=== PATIENT | male | born 1980 | race Two or more races ===

== ENCOUNTER 2019-04-30 22:45 | Emergency (ER) | payer OTHER | END 2019-05-01 01:44 | disposition left against medical advice (07) | LOC: ER 22:47 | DX: F41.9 Anxiety disorder, unspecified (principal); Z53.21 Procedure and treatment not carried out due to patient leaving prior to being seen by health care provider ==

== ENCOUNTER → 2020-01-13 | Emergency (ER) | payer OTHER ==
[~2020-01-13] VITALS: Ht 185.4 cm; Wt 104.3 kg
[2020-01-13 22:34] VITALS: BP 141/99
== END | disposition home or self-care (01) ==
LOC: ER 17:52
DX: S13.4XXA Sprain of ligaments of cervical spine, initial encounter (principal); R51 Headache; I10 Essential (primary) hypertension; Z88.8 Allergy status to other drugs, medicaments and biological substances; V87.8XXA Person injured in other specified noncollision transport accidents involving motor vehicle (traffic), initial encounter; Y93.89 Activity, other specified; Y92.89 Other specified places as the place of occurrence of the external cause; Y99.8 Other external cause status
CPT/HCPCS: 70450; 72125

== ENCOUNTER 2020-11-24 17:44 | Emergency (ER) | payer OTHER ==
[~2020-11-24] VITALS: Ht 190.5 cm; Wt 90.7 kg
[2020-11-24 17:48] VITALS: BP 153/91
[2020-11-24 19:07] LABS: Basophils # (auto) 0 10 ^3/uL (0-0.2); Basophils % (auto) 0.5 % (0.0-2.0); Eosinophils # (auto) 0.1 10 ^3/uL (0-0.8); Eosinophils % (auto) 1.8 % (0.0-7.0); Hematocrit 42.6 % (41.0-53.0); Hemoglobin 15.1 g/dL (13.5-17.5); Lymphocytes # (auto) 1.1 10 ^3/uL (0.4-5.4); Lymphocytes % (auto) 23.8 % (10.0-50.0); Mean Corpuscular Hemoglobin 31.9 pg (28.0-32.0); Mean Corpuscular Hgb Conc. 35.4 g/dL (32.0-36.0); Mean Corpuscular Volume 90.2 fL (80.0-100.0); Monocytes # (auto) 0.4 10 ^3/uL (0-1.3); Monocytes % (auto) 8.1 % (0.0-12.0); Neutrophils # (auto) 3.1 10 ^3/uL (1.6-8.6); Neutrophils % (auto) 65.8 % (37.0-80.0); Nucleated Red Blood Cells % 0.1 %; Platelet Count (auto) 183 10^3/uL (140-450); Red Blood Cells 4.72 10^6/uL (4.5-5.90); Red Cell Distribution Width 12.7 % (11.8-14.3); White Blood Cell 4.7 10^3/uL (4.4-10.8)
[2020-11-24 19:20] LABS: Albumin 3.5 g/dL (3.4-5.0); Calcium 8.3 mg/dL (8.5-10.1); Potassium 3.9 mmol/L (3.5-5.1)
[2020-11-24 19:24] LABS: BUN/Creatinine Ratio 20.9; Bilirubin, Total 0.3 mg/dL (0.2-1.0); Total Protein 7.3 g/dL (6.4-8.2)
== END 2020-11-24 20:03 | disposition home or self-care (01) ==
LOC: ER 17:44 → EDBD 17:44 → ER 20:03
DX: R56.9 Unspecified convulsions (principal)
CPT/HCPCS: 36415; 80053; 85025; 99283; J7030

== ENCOUNTER 2021-12-09 22:19 | Emergency (ER) | payer OTHER ==
[~2021-12-09] VITALS: Ht 185.4 cm; Wt 104.3 kg
[2021-12-09 23:30] VITALS: BP 140/100
== END 2021-12-10 00:34 | disposition home or self-care (01) ==
LOC: ER 22:19
DX: R51.9 Headache, unspecified (principal); I10 Essential (primary) hypertension; F41.9 Anxiety disorder, unspecified; W18.09XA Striking against other object with subsequent fall, initial encounter; Y93.89 Activity, other specified; Y92.89 Other specified places as the place of occurrence of the external cause; Y99.8 Other external cause status
CPT/HCPCS: 70450; 70486

== ENCOUNTER 2023-10-09 20:17 | Emergency (ER) | payer OTHER ==
[~2023-10-09] VITALS: Ht 185.4 cm; Wt 104.2 kg
[2023-10-10] MEDS ORDERED: GUAI200T6 PO (00:42)
[2023-10-10] MEDS ORDERED: AZITTAB PO (00:42)
[2023-10-10 01:45] VITALS: BP 137/74; PULSE 78; RESP 17; TEMP 97.9; O2SAT 97
== END 2023-10-10 01:30 | disposition home or self-care (01) ==
LOC: ER 20:17
DX: J06.9 Acute upper respiratory infection, unspecified (principal); I10 Essential (primary) hypertension

== ENCOUNTER 2024-12-06 13:45 | Emergency (ER) | payer OTHER ==
[~2024-12-06] VITALS: Ht 188 cm; Wt 107.0 kg
[~2024-12-06 13:45] MED LIST: AZITTAB PO; GUAI200T6 PO
--- NOTE | 2024-12-06 14:26 | ED.PDOC ---
History of Present Illness HPI Comments This is a 44-year-old male who comes in with chief complaint of dizziness with a feeling of about to have a seizure. The patient states that he was at [facility] and then felt somewhat dizzy so 911 was called. The patient was last seizure was approximately three days ago. He states that he does not take medications for seizures because he does not like how they make him feel. The paramedics arrived, the patient was able to speak with them but he seemed acting somewhat bizarre. He does have a history of schizophrenia as well as anxiety and PTSD. Chief Complaint: General Weakness Time Seen by MD: 13:50 Primary Care Provider: UNKNOWN Reviewed Notes: Nurses Notes, Material Movers Notes, Medications, Allergies (No allergies to medications) Allergies: Coded Allergies: Haloperidol (Verified Allergy, Unknown, 05/01/19) Home Meds Active Scripts Guaifenesin (Guaifenesin) 200 Mg Tab, 400 MG PO Q6HPRN PRN, #30 TAB 0 Refills Prov:MARISA JEAN [facility] [employer] 10/10/23 Azithromycin (Zithromax Z-Sherman) 250 Mg Tab, 250 MG PO DAILY for 5 Days, #6 TAB 0 Refills Prov:MARISA JEAN [facility] 10/10/23 Information Source: Patient, Emergency Med Personnel Mode of Arrival: EMS Severity: Moderate Timing: Hours Duration: Since onset Prehospital treatment: Accucheck (One hundred thirty-six), IVF Associated signs and symptoms Dizziness with an aura Past Medical History PAST MEDICAL HISTORY: Anxiety, Depression, HTN, Schizophrenia Past Medical History (Other): PTSD Surgical History (Other): Back surgery Family History Family History: Unknown Social History Smoker: Non-Smoker Alcohol: Denies ETOH Use Drugs: Denies Drug Use Lives In: Home Constitutional: denies: chills, diaphoresis, fatigue, fever, malaise, sweats, weakness, others EENTM: denies: blurred vision, double vision, ear bleeding, ear discharge, ear drainage, ear pain, ear ringing, eye pain, eye redness, hearing loss, mouth pain, mouth swelling, nasal discharge, nose bleeding, nose congestion, nose pain, photophobia, tearing, throat pain, throat swelling, voice changes, others Respiratory: denies: cough, hemoptysis, orthopnea, SOB at rest, shortness of breath, SOB with excertion, stridor, wheezing, others Cardiovascular: denies: chest pain, dizzy spells, diaphoresis, Dyspnea on exertion, edema, irregular heart beat, left arm pain, lightheadedness, palpitations, PND, syncope, others Gastrointestinal: denies: abdomen distended, abdominal pain, blood streaked bowels, constipated, diarrhea, dysphagia, difficulty swallowing, hematemesis, melena, nausea, poor appetite, poor fluid intake, rectal bleeding, rectal pain, vomiting, others Genitourinary: denies: burning, dysuria, flank pain, frequency, hematuria, incontinence, penile discharge, penile sore, pain, testicle pain, testicle swelling, urgency, others Neurological: reports: dizziness, others (Aura); denies: fainting, headache, left sided numbness, left sided weakness, numbness, paresthesia, pre-existing deficit, right sided numbness, right sided weakness, seizure, speech problems, tingling, tremors, weakness Musculoskeletal: denies: back pain, gout, joint pain, joint swelling, muscle pain, muscle stiffness, neck pain, others Integumetry: denies: bruises, change in color, change in hair/nails, dryness, laceration, lesions, lumps, rash, wounds, others Allergic/Immunocompromised: denies: Difficulty Healing, Frequent Infections, Hives, Itching, others Hematologic/Lymphatic: denies: anemia, blood clots, easy bleeding, easy bruising, swollen glands, others Endocrine: denies: excessive hunger, excessive sweating, excessive thirst, excessive urination, flushing, intolerance to cold, intolerance to heat, unexplained weight gain, unexplained weight loss, others Psychiatric: denies: anxiety, bipolar disorder, depression, hopeless, panic disorder, schizophrenia, sleepless, suicidal, others Physical Exam General Appearance: No Apparent Distress HEENT: Normal ENT Inspection, Pharynx Normal, TMs Normal Neck: Full Range of Motion, Non-Tender, Normal, Normal Inspection Respiratory: Chest Non-Tender, Lungs Clear, No Accessory Muscle Use, No Respiratory Distress, Normal Breath Sounds Cardiovascular: No Edema, No JVD, No Murmur, No Gallop, Normal Peripheral Pulses, Regular Rate/Rhythm Breast Exam: Deferred Gastrointestinal: No Organomegaly, Non Tender, No Pulsatile Mass, Normal Bowel Sounds, Soft Genitalia: Deferred Pelvic: Deferred Rectal: Deferred Extremities: No calf tenderness, Normal capillary refill, Normal inspection, Normal range of motion, Non-tender, No pedal edema Musculoskeletal : Apperance: Normal Neurologic: rug setter [place] II-XII nml as Tested, Motor Weakness, No Sensory Deficits, Other (The patient was staring) Cerebellar Function: Normal Reflexes: Normal Skin: Dry, Normal Color, Warm Lymphatic: No Adenopathy Was a procedure done? Was a procedure done?: No Differential Dx Considerations may include: Dizziness, seizures, electrolyte imbalance, dehydration X-Ray, Labs, Meds, VS Vital Signs Date Time Temp Pulse Resp B/P (MAP) Pulse Ox O2 Delivery O2 Flow Rate FiO2 12/06/24 15:00 91 23 135/88 (104) 93 12/06/24 14:06 98.4 74 16 148/98 (115) 98 12/06/24 13:45 74 Lab Test 12/06/24 14:02 Range/Units White Blood Count 4.2 L 4.4-10.8 10^3/uL Red Blood Count 4.74 4.5-5.90 10^6/uL Hemoglobin 14.9 13.5-17.5 g/dL Hematocrit 42.7 41.0-53.0 % Mean Corpuscular Volume 90.0 80.0-100.0 fL Mean Corpuscular Hemoglobin 31.4 28.0-32.0 pg Mean Corpuscular Hemoglobin Concent 34.8 32.0-36.0 g/dL Red Cell Distribution Width 13.0 11.8-14.3 % Platelet Count 193 140-450 10^3/uL Mean Platelet Volume 7.5 6.9-10.8 fL Neutrophils (%) (Auto) 65.6 37.0-80.0 % Lymphocytes (%) (Auto) 25.9 10.0-50.0 % Monocytes (%) (Auto) 6.1 0.0-12.0 % Eosinophils (%) (Auto) 1.9 0.0-7.0 % Basophils (%) (Auto) 0.5 0.0-2.0 % Neutrophils # (Auto) 2.8 1.6-8.6 10 ^3/uL Lymphocytes # (Auto) 1.1 0.4-5.4 10 ^3/uL Monocytes # (Auto) 0.3 0-1.3 10 ^3/uL Eosinophils # (Auto) 0.1 0-0.8 10 ^3/uL Basophils # (Auto) 0 0-0.2 10 ^3/uL Nucleated Red Blood Cells 0.0 % Sodium Level 138 136-145 mmol/L Potassium Level 4.1 3.5-5.1 mmol/L Chloride Level 104 98-107 mmol/L Carbon Dioxide Level 28 20-31 mmol/L Anion Gap 6 5-15 Blood Urea Nitrogen 16 9-23 mg/dL Creatinine 1.41 H 0.700-1.30 mg/dL Glomerular Filtration Rate Calc 64 >90 mL/min BUN/Creatinine Ratio 11.3 10.0-20.0 Serum Glucose 108 H 74-106 mg/dL Calcium Level 9.5 8.7-10.4 mg/dL IV Hep-Lock was established The patient was offloaded and then had a violent shaking episode which seemed to be somewhat anxious like and a pseudo-seizure. The staff were able to protect the patient on the floor. The patient was then given Ativan 2 mg IV push. The patient was then placed into the treatment bed and the patient then again started trying to shake like he was having another seizure. He was able to answer all questions when we were speaking to him during these episodes. At this time we placed seizure precautions on the patient. The patient was currently on a director of cardiac rehabilitation and will be monitored for any other activity Images Reviewed?: Images reviewed and evaluated by me Time of 1ST Reevaluation: 14:24 Reevaluation 1ST: Improved Patient Education/Counseling: Diagnosis, Treatment, Prognosis, Need For Follow Up Family Education/Counseling: No Family Present Departure 1 Departure Time of Disposition: 16:13 Impression: Primary Impression: Seizure-like activity Disposition: 01 HOME / SELF CARE / HOMELESS Condition: Fair Discharged With: Self Critical Care Note Critical Care Time?: No Stability Stability form required: No Heart Score Heart Score: Heart Score Response (Comments) Value History N/A 0 EKG N/A 0 Age N/A 0 Risk Factors N/A 0 Troponin N/A 0 Total 0 MOE RIDLEY MD Dec 06, 2024 14:26
[2024-12-06 14:51] LABS: Chloride 104 mmol/L (98-107); Potassium 4.1 mmol/L (3.5-5.1); Sodium 138 mmol/L (136-145)
[2024-12-06 14:52] LABS: Anion Gap 6 (5-15); Calcium 9.5 mg/dL (8.7-10.4); Carbon Dioxide 28 mmol/L (20-31)
[2024-12-06 14:53] LABS: Basophils # (auto) 0 10 ^3/uL (0-0.2); Basophils % (auto) 0.5 % (0.0-2.0); Eosinophils # (auto) 0.1 10 ^3/uL (0-0.8); Eosinophils % (auto) 1.9 % (0.0-7.0); Hematocrit 42.7 % (41.0-53.0); Hemoglobin 14.9 g/dL (13.5-17.5); Lymphocytes # (auto) 1.1 10 ^3/uL (0.4-5.4); Lymphocytes % (auto) 25.9 % (10.0-50.0); Mean Corpuscular Hemoglobin 31.4 pg (28.0-32.0); Mean Corpuscular Hgb Conc. 34.8 g/dL (32.0-36.0); Monocytes # (auto) 0.3 10 ^3/uL (0-1.3); Monocytes % (auto) 6.1 % (0.0-12.0); Neutrophils # (auto) 2.8 10 ^3/uL (1.6-8.6); Neutrophils % (auto) 65.6 % (37.0-80.0); Platelet Count (auto) 193 10^3/uL (140-450); Red Blood Cells 4.74 10^6/uL (4.5-5.90); White Blood Cell 4.2 10^3/uL (4.4-10.8)
[2024-12-06 14:57] LABS: BUN/Creatinine Ratio 11.3 (10.0-20.0); Blood Urea Nitrogen 16 mg/dL (9-23)
[2024-12-06 14:58] LABS: Glucose 108 mg/dL (74-106)
[2024-12-06 17:01] VITALS: BP 130/100; PULSE 80; RESP 21; O2SAT 93
--- NOTE | 2024-12-06 20:04 | ECG ---
[facility] Test Date: 2024-12-06 Test Time: 13:44:40 Pat Name: LOLA NEWSOME Department: ED Room: Gender: M Digital Marketing Lead: MATTHEW : 1980 Requested By: MOE RIDLEY Order Number: [id number] Reading MD: Armani Bustos Measurements Intervals [place] Rate: 74 P: 70 SC: 160 QRS: 92 QRSD: 98 T: 2 QT: 361 QTc: 401 Interpretive Statements Sinus rhythm Borderline right axis deviation Minimal ST elevation, lateral leads Electronically Signed On 12-08-2024 18:44:03 PST by Armani Bustos Please click the below link to view image of tracing.
== END 2024-12-06 18:22 | disposition home or self-care (01) ==
LOC: EDUNIT# 13:45 → ER 13:45 → EDBD 13:45 → ER 18:22
DX: R56.9 Unspecified convulsions (principal); I10 Essential (primary) hypertension; F41.9 Anxiety disorder, unspecified; F20.9 Schizophrenia, unspecified; F32.9 Major depressive disorder, single episode, unspecified; Z98.890 Other specified postprocedural states; Z88.8 Allergy status to other drugs, medicaments and biological substances; Z79.899 Other long term (current) drug therapy
CPT/HCPCS: 36415; 80048; 82947; 85025; 93005

== ENCOUNTER 2024-12-06 22:45 | Emergency (ER) | payer OTHER ==
[~2024-12-06] VITALS: Ht 188 cm; Wt 104.5 kg
--- NOTE | 2024-12-06 23:27 | ED.PDOC ---
History of Present Illness HPI Comments 44-year-old male came to ER via EMS for mental health issues. Patient recently discharged here a few hours ago, diagnosed with seizure-like activity. Patient does have a history of hypertension, seizures, schizophrenia, anxiety and depression. Patient was picked up at the [facility], where patient is comlaing of weeakness to both lower extremities, inability to walk and dizziness izziness Chief Complaint: Mental Health Time Seen by MD: 23:26 Primary Care Provider: UNKNOWN Reviewed Notes: Nurses Notes, Auto Seat Cover Installer Notes Allergies: Coded Allergies: Haloperidol (Verified Allergy, Unknown, 05/01/19) Home Meds Active Scripts Guaifenesin (Guaifenesin) 200 Mg Tab, 400 MG PO Q6HPRN PRN, #30 TAB 0 Refills Prov:MARISA JEAN [facility] 10/10/23 Azithromycin (Zithromax Z-Sherman) 250 Mg Tab, 250 MG PO DAILY for 5 Days, #6 TAB 0 Refills Prov:MARISA JEAN [facility] 10/10/23 Information Source: Patient Mode of Arrival: EMS Severity: Moderate Timing: Hours Duration: Intermittent Past Medical History PAST MEDICAL HISTORY: Anxiety, Depression, HTN, Schizophrenia, Seizures Surgical History: Denies all surgeries Family History Family History: Reviewed,noncontributory to illness, Unknown Social History Smoker: Non-Smoker Alcohol: Denies ETOH Use Drugs: Denies Drug Use Lives In: Home Constitutional: denies: chills, diaphoresis, fatigue, fever, malaise, sweats, weakness, others EENTM: denies: blurred vision, double vision, ear bleeding, ear discharge, ear drainage, ear pain, ear ringing, eye pain, eye redness, hearing loss, mouth pain, mouth swelling, nasal discharge, nose bleeding, nose congestion, nose pain, photophobia, tearing, throat pain, throat swelling, voice changes, others Respiratory: denies: cough, hemoptysis, orthopnea, SOB at rest, shortness of breath, SOB with excertion, stridor, wheezing, others Cardiovascular: denies: chest pain, dizzy spells, diaphoresis, Dyspnea on exertion, edema, irregular heart beat, left arm pain, lightheadedness, palpitations, PND, syncope, others Gastrointestinal: denies: abdomen distended, abdominal pain, blood streaked bowels, constipated, diarrhea, dysphagia, difficulty swallowing, hematemesis, melena, nausea, poor appetite, poor fluid intake, rectal bleeding, rectal pain, vomiting, others Genitourinary: denies: burning, dysuria, flank pain, frequency, hematuria, incontinence, penile discharge, penile sore, pain, testicle pain, testicle swelling, urgency, others Neurological: reports: dizziness, others (Inability to move, spasms); denies: fainting, headache, left sided numbness, left sided weakness, numbness, paresthesia, pre-existing deficit, right sided numbness, right sided weakness, seizure, speech problems, tingling, tremors, weakness Musculoskeletal: denies: back pain, gout, joint pain, joint swelling, muscle pain, muscle stiffness, neck pain, others Integumetry: denies: bruises, change in color, change in hair/nails, dryness, laceration, lesions, lumps, rash, wounds, others Allergic/Immunocompromised: denies: Difficulty Healing, Frequent Infections, Hives, Itching, others Hematologic/Lymphatic: denies: anemia, blood clots, easy bleeding, easy bruising, swollen glands, others Endocrine: denies: excessive hunger, excessive sweating, excessive thirst, excessive urination, flushing, intolerance to cold, intolerance to heat, unexplained weight gain, unexplained weight loss, others Psychiatric: denies: anxiety, bipolar disorder, depression, hopeless, panic disorder, schizophrenia, sleepless, suicidal, others Physical Exam General Appearance: No Apparent Distress, Normal HEENT: Normal ENT Inspection, Pharynx Normal, TMs Normal Neck: Full Range of Motion, Non-Tender, Normal, Normal Inspection Respiratory: Chest Non-Tender, Lungs Clear, No Accessory Muscle Use, No Respiratory Distress, Normal Breath Sounds Cardiovascular: No Edema, No JVD, No Murmur, No Gallop, Normal Peripheral Pulses, Regular Rate/Rhythm Breast Exam: Deferred Gastrointestinal: No Organomegaly, Non Tender, No Pulsatile Mass, Normal Bowel Sounds, Soft Genitalia: Deferred Pelvic: Deferred Rectal: Deferred Extremities: No calf tenderness, Normal capillary refill, Normal inspection, Normal range of motion, Non-tender, No pedal edema Musculoskeletal : Apperance: Normal Neurologic: Alert, connie scratcher II-XII nml as Tested, No Motor Deficits, Normal Affect, Normal Mood, No Sensory Deficits Cerebellar Function: Normal Reflexes: Normal Skin: Dry, Normal Color, Warm Lymphatic: No Adenopathy Was a procedure done? Was a procedure done?: No Differential Dx Considerations may include: Anemia, electrolyte imbalance, schizophrenia, substance abuse, anxiety, X-Ray, Labs, Meds, VS Vital Signs Date Time Temp Pulse Resp B/P (MAP) Pulse Ox O2 Delivery O2 Flow Rate FiO2 12/06/24 22:50 97.9 88 13 175/99 (124) 92 Time of 1ST Reevaluation: 23:16 Reevaluation 1ST: Unchanged Patient Education/Counseling: Diagnosis, Treatment Family Education/Counseling: Diagnosis, Treatment Departure 1 Departure Time of Disposition: 23:37 (Patient reports all symptoms have resolved. He is feeling better would like to go home.) Impression: Primary Impression: Seizure-like activity Disposition: 01 HOME / SELF CARE / HOMELESS Condition: Stable Discharged With: Lodging Manager Critical Care Note Critical Care Time?: No Stability Stability form required: No Heart Score Heart Score: Heart Score Response (Comments) Value History N/A 0 EKG N/A 0 Age N/A 0 Risk Factors N/A 0 Troponin N/A 0 Total 0 I personally scribed for BESS SALAZAR MD ([email or web address]) on 12/06/24 at 23:27. Electronically submitted by Shady Cameron ([facility]). BESS SALAZAR MD Dec 06, 2024 23:27
[2024-12-07 01:11] VITALS: BP 155/85; PULSE 88; RESP 16; TEMP 98; O2SAT 96
== END 2024-12-07 01:11 | disposition home or self-care (01) ==
LOC: ER 22:45 → EDBD 22:45 → ER 12-07 01:11
DX: R56.9 Unspecified convulsions (principal); I10 Essential (primary) hypertension; F20.9 Schizophrenia, unspecified; Z79.899 Other long term (current) drug therapy; Z88.8 Allergy status to other drugs, medicaments and biological substances

== ENCOUNTER 2025-08-08 15:48 | Emergency (ER) | payer OTHER ==
[~2025-08-08] VITALS: Ht 188 cm; Wt 104.5 kg
--- NOTE | 2025-08-08 16:20 | ED.PDOC ---
History of Present Illness HPI Comments Mr. Underwood is a 44-year-old male with prior medical history of seizure disorder, PTSD, depression, and schizotypal disorder, who presents today [facility] with chief complaint of a seizure. Per EMS, the patient was signing into a plasma donation center when he suddenly blanked out and started shaking his right arm, prompting them to call EMS. On scene, they state that the patient was confused, BP of 153/113 mmHg, Blood glucose within normal range, without any signs of incontinence or overt signs of distress. On initial eval the patient is AOx4, seems well, with stable vitals. He reports that while at the plasma center he got very stressed out which lead to onset of dizziness and sensation that every around him was amplified. He states he was aware during this entire episode, and confirms he had the sensation that a seizure was coming on, but he does not believe he had seizure given that he usually blacks out during these episodes. He denies loss of consciousness, incontinence, nausea, vomiting, headache, changes in vision or hearing, changes in sensation, weird taste, palpitations, fever, chest pain, abdominal, or recent contact with sick individuals. Chief Complaint: Seizure Time Seen by MD: 17:20 Primary Care Provider: UNKNOWN Allergies: Coded Allergies: Haloperidol (Verified Allergy, Unknown, 05/01/19) Home Meds Active Scripts Guaifenesin (Guaifenesin) 200 Mg Tab, 400 MG PO Q6HPRN PRN, #30 TAB 0 Refills Prov:MARISA JEAN [facility] 10/10/23 Azithromycin (Zithromax Z-Sherman) 250 Mg Tab, 250 MG PO DAILY for 5 Days, #6 TAB 0 Refills Prov:MARISA JEAN [facility] 10/10/23 Information Source: Patient, Emergency Med Personnel Mode of Arrival: EMS Severity: Mild Timing: Hours Duration: Since onset Prehospital treatment: 12 Lead EKG, Accucheck Past Medical History PAST MEDICAL HISTORY: Anxiety, Depression, HTN, Schizophrenia, Seizures Surgical History: Denies all surgeries Family History Family History: Reviewed,noncontributory to illness, Unknown Social History Smoker: Non-Smoker Alcohol: Denies ETOH Use Drugs: Denies Drug Use Lives In: Home Constitutional: denies: chills, diaphoresis, fatigue, fever, malaise, sweats, weakness EENTM: denies: blurred vision, double vision, ear bleeding, ear drainage, ear ringing, mouth pain, nasal discharge, nose congestion, photophobia, throat pain Respiratory: denies: cough, hemoptysis, orthopnea, shortness of breath, stridor Cardiovascular: denies: chest pain, dizzy spells, diaphoresis, Dyspnea on exertion, edema, irregular heart beat, left arm pain, lightheadedness, palpitations, PND, syncope, others Gastrointestinal: reports: rectal pain; denies: abdomen distended, abdominal pain, constipated, diarrhea, dysphagia, difficulty swallowing, hematemesis, nausea, poor appetite, rectal bleeding, vomiting Genitourinary: denies: burning, dysuria, flank pain, frequency, hematuria, incontinence, pain Neurological: reports: seizure; denies: dizziness, fainting, headache, numbness, paresthesia, tingling, weakness Musculoskeletal: denies: back pain, joint pain, joint swelling, muscle pain, muscle stiffness, neck pain Integumetry: denies: bruises, laceration, lesions, lumps, rash, wounds Physical Exam General Appearance: Normal HEENT: Normal ENT Inspection, PERRL/EOMI, Pharynx Normal Neck: Full Range of Motion, Non-Tender, Normal Inspection Respiratory: Chest Non-Tender, No Accessory Muscle Use, No Respiratory Distress, Normal Breath Sounds Cardiovascular: No Edema, No Murmur, Normal Peripheral Pulses, Regular Rate/Rhythm Breast Exam: Deferred Gastrointestinal: Non Tender, No Pulsatile Mass, Normal Bowel Sounds, Soft Genitalia: Deferred Pelvic: Deferred Rectal: Deferred Extremities: Normal capillary refill, Normal inspection, Normal range of motion, Non-tender, No pedal edema Neurologic: Alert, No Motor Deficits, Normal Affect, Normal Mood, No Sensory Deficits Cerebellar Function: Normal Reflexes: NOT DONE Skin: Normal Color Peripheral Pulses: 4+ dorsalis pedis (R), 4+ dorsalis pedis (L) Lymphatic: Other (Cervical adenopathy) Was a procedure done? Was a procedure done?: No Differential Dx Considerations may include: Psychogenic seizure, epilepsy, drug use, meningitis, complex migraine X-Ray, Labs, Meds, VS Vital Signs Date Time Temp Pulse Resp B/P (MAP) Pulse Ox O2 Delivery O2 Flow Rate FiO2 10/31/25 16:35 97.6 65 16 138/104 (115) 96 97.6 08/08/25 16:35 65 16 96 Room Air* 0 21 08/08/25 16:08 98.0 73 14 159/113 98 98.0 Lab Test 08/08/25 18:06 08/08/25 16:30 Range/Units Urine Color Pending Urine Clarity Pending Urine pH Pending Urine Specific Driver Pending Urine Protein Pending Urine Ketones Pending Urine Blood Pending Urine Nitrite Pending Urine Bilirubin Pending Urine Urobilinogen Pending Urine Leukocyte Esterase Pending Urine RBC Pending Urine Microscopic WBC Pending Urine Squamous Epithelial Cells Pending Urine Bacteria Pending Urine Glucose Pending Urine Opiates Screen Pending Urine Fentanyl Screen Pending Urine Barbiturates Screen Pending Urine Phencyclidine Screen Pending Urine Amphetamines Screen Pending Urine Benzodiazepines Screen Pending Urine Cocaine Screen Pending Urine Cannabinoids Screen Pending White Blood Count 4.5 4.4-10.8 10^3/uL Red Blood Count 4.91 4.5-5.90 10^6/uL Hemoglobin 15.1 13.5-17.5 g/dL Hematocrit 44.0 41.0-53.0 % Mean Corpuscular Volume 89.7 80.0-100.0 fL Mean Corpuscular Hemoglobin 30.9 28.0-32.0 pg Mean Corpuscular Hemoglobin Concent 34.4 32.0-36.0 g/dL Red Cell Distribution Width 13.2 11.8-14.3 % Platelet Count 220 140-450 10^3/uL Mean Platelet Volume 6.8 L 6.9-10.8 fL Neutrophils (%) (Auto) 64.1 37.0-80.0 % Lymphocytes (%) (Auto) 26.9 10.0-50.0 % Monocytes (%) (Auto) 6.7 0.0-12.0 % Eosinophils (%) (Auto) 1.7 0.0-7.0 % Basophils (%) (Auto) 0.6 0.0-2.0 % Neutrophils # (Auto) 2.9 1.6-8.6 10 ^3/uL Lymphocytes # (Auto) 1.2 0.4-5.4 10 ^3/uL Monocytes # (Auto) 0.3 0-1.3 10 ^3/uL Eosinophils # (Auto) 0.1 0-0.8 10 ^3/uL Basophils # (Auto) 0 0-0.2 10 ^3/uL Nucleated Red Blood Cells 0.1 % Sodium Level 139 136-145 mmol/L Potassium Level 4.1 3.5-5.1 mmol/L Chloride Level 107 98-107 mmol/L Carbon Dioxide Level 25 20-31 mmol/L Anion Gap 7 5-15 Blood Urea Nitrogen 17 9-23 mg/dL Creatinine 1.23 0.700-1.30 mg/dL Glomerular Filtration Rate Calc 75 >90 mL/min BUN/Creatinine Ratio 13.8 10.0-20.0 Serum Glucose 101 74-106 mg/dL Calcium Level 9.4 8.7-10.4 mg/dL [place] [id number] Ph: [phone] DIAGNOSTIC IMAGING Diagnostic Imaging Report : [id number] Signed PATIENT: LOLA UNDERWOOD ACCT: [id number] UNIT: [id number] : 1980 LOC: ER ROOM / BED: / AGE / SEX: 44 / M ADM STATUS: REG ER SERVICE 1617 ORDERING PHYSICIAN: VIOLETA PRATT RESIDENT PROCEDURE(s): HWOCT - HEAD WITHOUT CONTRAST REASON: Seizure ORDER NUMBER(s): [id number], ACCESSION NUMBER(s): [id number] EXAM: CT HEAD WITHOUT CONTRAST INDICATION: Seizure TECHNIQUE: CT of the head without intravenous contrast. Radiation Dose Information: CT Dose: CTDI volume is 66.70 mGy. Dose-length product is 1247.42 mGy*cm The dose indicators for CT are the volume Computed Tomography (CT) Dose Index (CTDIvol) and the Dose Length Product (DLP), and are measured in units of mGy and mGy-cm, respectively. These indicators are not patient dose, but values generated from the CT scanner acquisition factors. The report includes radiation exposure data for exposures received during this examination. COMPARISON: HEAD WITHOUT CONTRAST on DOS: 12/09/21, MAXILLOFACIAL WITHOUT on DOS: 12/09/21 FINDINGS: There is no evidence of acute intracranial hemorrhage, extra-axial collection, mass effect, midline shift, herniation or hydrocephalus. The ventricles, sulci and cisterns are age appropriate. The toussaint-white differentiation is intact. The visualized paranasal sinuses and mastoid air cells are clear. The surrounding soft tissues and osseous structures are unremarkable. IMPRESSION: No acute intracranial abnormality. ATED BY: TORSTEN ALEXANDER MD DICTATED DATE/TIME: 08/08/251650 SIGNED BY: TORSTEN ALEXANDER MD SIGNED DATE/TIME: 08/08/251650 CC: Time of 1ST Reevaluation: 18:00 Reevaluation 1ST: Unchanged Patient Education/Counseling: Diagnosis, Treatment Family Education/Counseling: No Family Present Comments The patient presented today via EMS due to an apparent seizure On initial evaluation, the patient seems well, AOx4, vitals are stable, with no overt signs of distress Physical exam is negative CBC and BMP without significant findings CT shows no acute intracranial abnormalities Due to witnessed seizure, patient requires admission for further workup and management SEPSIS Sepsis Screen Date sepsis recognized/suspect: Aug 08, 2025 Time Sepsis recognized/suspect: 161 Recent Procedure: No On Antibiotic Therapy: No Respiratory Rate >20: No Heart Rate >90: No Temp<36 C (96.8 F) or >38.3 C: No SBP <90 or MAP <65 mmHG: No New Acute Mental Status Change: No Is the patient on CPAP, BIPAP,: No Physician Orders Urinalysis (08/08/25 16:17) Drug Screen (08/08/25 16:17) Head Without Contrast (08/08/25 16:17) Vital Signs Date Time Temp Pulse Resp B/P (MAP) Pulse Ox O2 Delivery O2 Flow Rate FiO2 08/08/25 16:35 97.6 65 16 138/104 (115) 96 97.6 08/08/25 16:35 65 16 96 Room Air* 0 21 08/08/25 16:08 98.0 73 14 159/113 98 98.0 Laboratory Tests Test 08/08/25 16:30 White Blood Count 4.5 10^3/uL (4.4-10.8) Departure 1 Departure Time of Disposition: 18:28 Impression: Primary Impression: Seizure Disposition: 30 STILL A PATIENT Admit to: Tele Condition: Stable Critical Care Note Critical Care Time?: No Stability Stability form required: No I personally scribed for VIOLETA PRATT ([email or web address]) on 08/08/25 at 17:45. Electronically submitted by Niels Correia ([email or web address]). VIOLETA PRATT RESIDENT Aug 08, 2025 16:19
[2025-08-08 16:35] VITALS: PULSE 65; RESP 16; O2SAT 96
[2025-08-08 16:44] LABS: Hematocrit 44.0 % (41.0-53.0); Hemoglobin 15.1 g/dL (13.5-17.5); Mean Corpuscular Hemoglobin 30.9 pg (28.0-32.0); Mean Corpuscular Volume 89.7 fL (80.0-100.0); Nucleated Red Blood Cells % 0.1 %
[2025-08-08 16:53] LABS: Chloride 107 mmol/L (98-107); Potassium 4.1 mmol/L (3.5-5.1); Sodium 139 mmol/L (136-145)
[2025-08-08 16:54] LABS: Anion Gap 7 (5-15); Carbon Dioxide 25 mmol/L (20-31)
--- NOTE | 2025-08-08 16:54 | DVH ---
EXAM: CT HEAD WITHOUT CONTRAST INDICATION: Seizure TECHNIQUE: CT of the head without intravenous contrast. Radiation Dose Information: CT Dose: CTDI volume is 66.70 mGy. Dose-length product is 1247.42 mGy*cm The dose indicators for CT are the volume Computed Tomography (CT) Dose Index (CTDIvol) and the Dose Length Product (DLP), and are measured in units of mGy and mGy-cm, respectively. These indicators are not patient dose, but values generated from the CT scanner acquisition factors. The report includes radiation exposure data for exposures received during this examination. COMPARISON: HEAD WITHOUT CONTRAST on DOS: 12/09/21, MAXILLOFACIAL WITHOUT on DOS: 12/09/21 FINDINGS: There is no evidence of acute intracranial hemorrhage, extra-axial collection, mass effect, midline s hift, herniation or hydrocephalus. The ventricles, sulci and cisterns are age appropriate. The toussaint-white differentiation is intact. The visualized paranasal sinuses and mastoid air cells are clear. The surrounding soft tissues and osseous structures are unremarkable. IMPRESSION: No acute intracranial abnormality.
[2025-08-08 16:55] LABS: Calcium 9.4 mg/dL (8.7-10.4)
[2025-08-08 17:00] LABS: BUN/Creatinine Ratio 13.8 (10.0-20.0); Blood Urea Nitrogen 17 mg/dL (9-23); Glucose 101 mg/dL (74-106)
[2025-08-08 18:37] VITALS: BP 137/95; PULSE 66; RESP 16; TEMP 97.3; O2SAT 96
[2025-08-08 18:37] LABS: Urine Protein, UAD Negative (Negative)
[2025-08-08 18:38] LABS: Amphetamine Screen, Urine Neg (NEGATIVE); Barbiturate Scree,Urine Neg (NEGATIVE); Benzodiazephine Screen, Urine Neg (NEGATIVE); Cannabinoid Screen, Urine Neg (NEGATIVE); Cocaine Screen, Urine Neg (NEGATIVE); Opiate Scree,Urine Neg (NEGATIVE); Phencyclidine Screen, Urine Neg (NEGATIVE)
== END 2025-08-08 19:24 | disposition left against medical advice (07) ==
LOC: EDBD 15:48 → ER 15:48
DX: G40.909 Epilepsy, unspecified, not intractable, without status epilepticus (principal); I10 Essential (primary) hypertension; F21 Schizotypal disorder; F20.9 Schizophrenia, unspecified; Z79.899 Other long term (current) drug therapy
CPT/HCPCS: 36415; 70450; 80048; 80307; 81001; 85025